=== PATIENT | male | born 1980 | race Two or more races ===

== ENCOUNTER 2022-11-19 13:39 | Emergency (ER) | payer BC, MEDICAID ==
[~2022-11-19] VITALS: Ht 175.3 cm; Wt 97.1 kg
[2022-11-19 15:49] VITALS: BP 133/94
[2022-11-19] MEDS ORDERED: ACETAMINOPHEN 500 MG TAB PO ONE (17:00)
[2022-11-19] MEDS ORDERED: LIDO5PAD8 EX (17:49)
[2022-11-19] MEDS ORDERED: CYCL-839 PO (17:49)
[2022-11-19] MEDS ORDERED: IBUP1TAB5 PO (17:49)
== END 2022-11-19 17:56 | disposition home or self-care (01) ==
LOC: ER 13:39
DX: S39.012A Strain of muscle, fascia and tendon of lower back, initial encounter (principal); S46.911A Strain of unspecified muscle, fascia and tendon at shoulder and upper arm level, right arm, initial encounter; X50.0XXA Overexertion from strenuous movement or load, initial encounter; Y93.89 Activity, other specified; Y92.89 Other specified places as the place of occurrence of the external cause; Y99.8 Other external cause status
CPT/HCPCS: 72100; 73010